=== PATIENT | female | born 1970 | race Caucasian/White ===

== ENCOUNTER 2024-04-24 01:42 | Emergency (ER) | payer BC, OTHER ==
[2024-04-24 02:14] LABS: Bilirubin Small (Negative); Blood, Urine Large (Negative); Clarity Cloudy (Clear); Glucose, Urine (Dipstick) Negative (Negative); Ketone, Urine Trace mg/dL (Negative); Nitrite Negative (Negative); Protein, Urine (Dipstick) > or equal to 300 mg/dL (Neg-Trace); pH, Urine 5.5 (5.0-9.0)
[2024-04-24 02:19] LABS: CAUTI Indications for Culture Dysuria,urgency,freq; Leukocyte Moderate (Negative); RBC/HPF Greater than 50 HPF (0-3); WBC/HPF Greater than 50 HPF (0-3)
[2024-04-24 02:20] LABS: Bacteria/HPF Rare-Few HPF (None Seen); Squamous Epithelial 0-3 HPF (0-3); Urine Culture Reflex Yes Yes
[2024-04-24] MEDS ORDERED: Nitrofurantoin Monohyd/M-Cryst 100 MG CAP ONE (02:36)
== END 2024-04-24 02:50 | disposition home or self-care (01) ==
LOC: NAV ERS 01:42
DX: N30.01 Acute cystitis with hematuria (principal)
CPT/HCPCS: 81001; 87086; 99283